=== PATIENT | male | born 1990 | race Caucasian/White ===

== ENCOUNTER 2022-01-11 16:11 | Emergency (ER) | payer BC, SELFPAY ==
[2022-01-11] VITALS (43 sets, daily range): BP systolic 115–153; BP diastolic 56–91; PULSE 62–90; RESP 11–24; TEMP 35.9–36.8; O2SAT 94–99
--- NOTE | 2022-01-11 16:15 | ED.GENADUL_ITS ---
Discharge Plan Disposition Patient Disposition: HOME Condition: Stable Discharge Details Clinical Impression: Bee sting allergy Primary Care Provider: Unknown,Unknown ED Provider: Nas Jeong Home Meds and New Rx's Prescriptions: New prednisone 20 mg tablet See Rx Instructions .ROUTE .COMPLEX Qty: 18 0RF Rx Instructions: Take 3 tabs daily for 3 days, then 2 tabs daily for 3 days, then 1 tab daily for 3 days. epinephrine 0.3 mg/0.3 mL auto-injector 0.3 ml SC ONCE PRN (Reason: anaphylaxis) Qty: 2 0RF Rx Instructions: as a single dose; may repeat once Continued epinephrine 0.3 mg/0.3 mL Auto-Injector 0.3 ml IM PRN PRN Discharge Instructions Instructions: Insect Bite or Sting (ED) Additional Instructions: Your lab work and EKGs today are reassuring and show no evidence of acute concerning significant findings. Prescriptions for steroids and an EpiPen have been sent electronically to your pharmacy to take as directed. Drink plenty of fluids and get plenty of rest. Take Benadryl as needed and directed for itching. Follow-up with your primary care doctor in 1 week. Return to the emergency department with any worsening or new concerning symptoms. Discharge Data Discharge Date/Time-TO BE ENTERED AT DEPARTURE: 01/11/22 20:41 Discharge Physician: Lesley Savage Medical Decision Making 1615 -- 31-year-old male with a history of anaphylaxis to bee stings presents with sensation of throat swelling that occurred 15 minutes after bee sting to his lower back prior to arrival. Blood pressure mildly hypertensive on arrival now improved. Patient appears in no acute distress and breathing comfortably. Normal oropharynx. Lungs clear bilaterally. Due to patient's history of anaphylaxis and sensation of throat swelling, his EpiPen was used here in triage. Will continue to monitor in the ED for 4 to 6 hours post epinephrine injection. We will place an IV, bolus IV fluids, IV Solu-Medrol, IV Benadryl, IV Pepcid. 1714 -- patient complained of substernal chest pressure. EKG obtained which notes a rate of 71, sinus with peaked T waves in anterior lateral leads but no STEMI. Will obtain screening labs. Do not feel indication for imaging at this time. 1899 -- labs reviewed and unremarkable. 1919 -- Pt reassessed and he feels much better -- he is currently eating and currently denies any difficulty swallowing or chest pain 1999 -- Case endorsed to Dr. Jeong to continue to monitor post epinephrine injection and pending delta troponin and repeat EKG results. Medical Records Medical records reviewed: Yes I reviewed the patient's medical records. Lab Data Lab results reviewed: Yes I reviewed the patient's lab results. Labs: Laboratory Tests Range/Units 01/11/22 01/11/22 17:38 17:38 WBC (4.4-10.8) 10^3/uL 9.60 RBC (4.36-5.78) 10^6/uL 4.69 Hgb (13.5-17.5) g/dL 14.3 Hct (40.0-50.0) % 41.2 MCV (80-95) fL 88 MCH (27.0-33.0) pg 30.5 MCHC (32.0-36.0) % 34.7 RDW (11.8-14.1) % 12.1 Plt Count (130-400) 10^3/uL 306 MPV (8.0-11.0) fL 9.8 Immature Gran % 0.4 Neutrophils % 66.0 Lymphocytes % 24.7 Monocytes % 7.2 Eosinophils % 1.1 Basophils % 0.6 Nucleated RBC % (0.0-0.3) % 0.0 Absolute Neutrophils (1.2-6.7) 10^3/uL 6.33 Absolute Lymphocytes (1.2-3.4) 10^3/uL 2.37 Absolute Monocytes (0.1-0.8) 10^3/uL 0.69 Absolute Eosinophils (0.0-0.7) 10^3/uL 0.11 Absolute Basophils (0.0-0.2) 10^3/uL 0.06 Sodium (136-145) mmol/L 143 Potassium (3.5-5.1) mmol/L 3.7 Chloride (98-107) mmol/L 106 Carbon Dioxide (21.0-32.0) mmol/L 27.1 Anion Gap (3-11) mmol/L 9.9 BUN (7-18) mg/dL 19 H Creatinine (0.70-1.30) mg/dL 1.2 Estimated GFR/1.73 m2 (mL/min/1.73m2) >= 60.00 Glucose (74-106) mg/dL 90 Calcium (8.5-10.1) mg/dL 8.7 Magnesium (1.8-2.4) mg/dL 2.0 Total Bilirubin (0.2-1.0) mg/dL 0.8 AST (15-37) U/L 13 L ALT (16-63) U/L 25 Alkaline Phosphatase (46-116) U/L 52 Troponin I (<or=60) ng/L < 50 Total Protein (6.4-8.2) g/dL 7.0 Albumin (3.4-5.0) g/dL 3.7 ECG Data Attestation: I personally reviewed and interpreted this ECG (s) as follows: Interpretation: Rate of 71, sinus, peaked T waves in anterior lateral leads. No STEMI. HPI General Mode of arrival: ambulatory . Date/Time Provider Initiated Documentation: 01/11/22 16:12 . Limitations to Documentation: no limitations . Information obtained by: patient . HPI Narrative: Pt is a 31yo M with a history of anaphylaxis to bee stings presents with sensation of throat swelling that occurred 15 minutes after a bee sting today. Patient states the bee sting occurred approximately 20 minutes prior to arrival. Patient states he was stung by a wasp in the center of his lower back. Patient states he has an EpiPen that he carries with him but did not use it as he states that he was told by a doctor in [place] to hold on his EpiPen unless he develops symptoms. Patient states approximately 15 minutes after the bee sting he developed sensation of throat swelling. He denies any difficulty breathing or vomiting. He states he has not taken any Benadryl or other medications. Related Data Home Medications Medication Instructions Recorded Confirmed epinephrine 0.3 mg/0.3 mL 0.3 ml IM PRN PRN 01/11/22 01/11/22 injection, auto-injector epinephrine 0.3 mg/0.3 mL 0.3 ml subcut ONCE PRN anaphylaxis 01/11/22 injection, auto-injector #2 ea prednisone 20 mg tablet See Rx Instructions .Route 01/11/22 .COMPLEX #18 tabs Previous Rx's Medication Instructions Recorded epinephrine 0.3 mg/0.3 mL 0.3 ml subcut ONCE PRN anaphylaxis 01/11/22 injection, auto-injector #2 ea prednisone 20 mg tablet See Rx Instructions .Route 01/11/22 .COMPLEX #18 tabs Allergies Allergy/AdvReac Type Severity Reaction Status Date / Time bee pollen Allergy Severe Anaphylaxis Unverified 01/11/22 16:23 General Stated Complaint: Allergic Review of Systems All systems reviewed & are unremarkable except as noted in HPI and below Constitutional Constitutional: Denies chills, Denies excessive sweating, Denies fatigue, Denies fever(s), Denies weakness and Denies weight loss Eyes Eyes: Reports system reviewed and no additional complaints, except as documented and Denies blurry vision ENT Ears, Nose, Mouth, and Throat: Denies vertigo, Denies dizziness, Denies otalgia, Denies nasal congestion, Denies sore throat and Denies throat swelling Cardiovascular Cardiovascular: Denies chest pain, Denies syncope, Denies rapid heart rate and Denies dyspnea Respiratory Respiratory: Denies chest congestion, Denies cough, Denies pain on inspiration and Denies dyspnea Gastrointestinal Gastrointestinal: Denies abdominal pain, Denies diarrhea and Denies vomiting Genitourinary Genitourinary: Denies hematuria, Denies dysuria and Denies flank pain Musculoskeletal Musculoskeletal: Denies back pain and Denies joint swelling Integumentary/Breasts Skin/Breast: Denies lesions and Denies rash Neurologic Neurologic: Denies behavioral changes, Denies confusion, Denies vertigo, Denies dizziness, Denies syncope, Denies localized weakness and Denies weakness Psychiatric Psychiatric: Denies behavioral changes, Denies confusion and Denies depression Endocrine Endocrine: Denies excessive sweating and Denies fatigue Hematologic/Lymphatic Hematologic/Lymphatic: Denies easy bruising and Denies lymphadenopathy Allergic/Immunologic Allergic/Immunologic: Denies throat swelling PFSH All Active Problems (Updated 01/11/22 @ 18:52 by Lesley Savage DO) Bee sting allergy (Acute) Medical History (Updated 01/11/22 @ 18:52 by Lesley Savage DO) History of bee sting allergy Surgical History (Updated 01/11/22 @ 17:16 by Lesley Savage DO) History of appendectomy History of tonsillectomy Social History Smoking/Tobacco Use Status: Current every day Tobacco Type: smokeless tobacco Smoking risk assessment performed?: Yes Alcohol Intake: never Drug use: Never Substance use type: does not use Do you feel safe at home: Yes Do you feel safe in your relationship?: Yes Exam Const General: cooperative and healthy appearing Orientation: alert, awake and oriented x3 HENMT Head: normal to inspection Ears: hearing grossly normal bilaterally, external ears normal and TM's normal bilaterally General nose exam: external nose normal Face and sinus: normal facial exam Mouth: oral mucosae normal Teeth and gingiva: dentition normal Throat: posterior oropharynx normal Eyes General: appearance normal, both eyes and all related structures Eyelids: eyelids normal Pupils: PERRL EOM: EOM intact bilaterally Neck Neck: normal visual inspection Lymphatic: no lymphadenopathy noted Chest Chest: normal inspection of the chest Resp Effort & Inspection: normal respiratory effort and able to speak in complete sentences Auscultation: clear to auscultation bilaterally Cardio Rate: regular rate Rhythm: regular rhythm GI Inspection: normal to inspection Palpation: soft, not firm, no guarding, no hepatosplenomegaly, no masses and nontender Auscultation: normal bowel sounds Back/Spine/Pelvis Back: no CVA tenderness Skin General skin exam: no rashes or lesions noted Neuro General: patient alert and patient awake Cognition: normal cognition Speech: speech normal Gait: normal gait Motor: muscle tone normal throughout Sensory Exam: no sensory deficits noted Extrem General: normal to inspection, full ROM and capillary refill normal Psych Appearance: grossly normal Mental Status: mental status grossly normal Speech and Movement: speech and movement normal Affect: normal affect Thought Process: normal Sign Out Sign Out Data: Sign Out Comment: Bee sting prior to arrival. H/o anaphylaxis to bees. Pt administered his own epi IM on arrival due to complaint of throat swelling. Pt c/o chest pain while here in the ED. First trop negative. EKG notes peaked T waves but no STEMI. F/u on delta troponin and EKG at 2030. If continues to improve and workup negative, will discharge to home. Prescriptions for steroids and epi pen sent electronically to his pharmacy. Last updated by Lesley Savage DO at 01/11/22 19:00
[2022-01-11] MEDS: Normal Saline 1,000 ML 1000 ML IV (17:05)
[2022-01-11] MEDS: methylPREDNISolone SUCC 125 MG VIAL IVP (17:10)
[2022-01-11] MEDS: Famotidine 20 MG/2 ML VIAL IVP (17:11)
--- NOTE | 2022-01-11 17:15 | RT.EKG_ITS ---
APPROVED REPORT Exam: Resting ECG Reason for Exam: chest pain Patient Location: E HR:79 bpm ECG Measurements Heart Rate 79 AXIS WV 158 P 61 QRSd 114 QRS 40 QT 370 T 24 QTc 426 Conclusion Sinus rhythm...normal P axis, V-rate 60- 99 ST elev, probable normal early repol pattern...ST elevation, age<55 I have reviewed and interpreted ECG and agree with software generated interpretation. Physician: Early repol, no stemi, no depression. unchanged from prior ekg
--- NOTE | 2022-01-11 17:15 | RT.EKG_ITS ---
APPROVED REPORT Exam: Resting ECG Reason for Exam: chest pain Patient Location: E HR:71 bpm ECG Measurements Heart Rate 71 AXIS NV 158 P 60 QRSd 116 QRS 38 QT 381 T 29 QTc 414 Conclusion Sinus rhythm...normal P axis, V-rate 60- 99 Nonspecific intraventricular conduction delay...QRSd >115mS, not LBBB/RBBB Lateral infarct, recent...Q>35, ST>.05, T neg, V5-V6 I aVL Borderline ST elevation, anterior leads...ST >0.15mV in V1-V4. Sinus. Normal axis. Peaked T waves anterolateral leads. No old EKG to compare. No STEMI. I have reviewed and interpreted ECG and agree with software generated interpretation.
[2022-01-11] MEDS: diphenhydrAMINE 50 MG/ML VIAL IVP (17:17)
[2022-01-11 17:46] LABS: Abs Immature Grans 0.04 10^3/uL (0.0-0.06); Absolute Basophil Count 0.06 10^3/uL (0.0-0.2); Absolute Eosinophil Count 0.11 10^3/uL (0.0-0.7); Absolute Lymphocyte Count 2.37 10^3/uL (1.2-3.4); Absolute Monocyte Count 0.69 10^3/uL (0.1-0.8); Absolute Neutrophil Count 6.33 10^3/uL (1.2-6.7); Basophils % 0.6; Eosinophils % 1.1; HCT 41.2 % (40.0-50.0); HGB 14.3 g/dL (13.5-17.5); Immature Grans % 0.4; Lymphocytes % 24.7; MCH 30.5 pg (27.0-33.0); MCHC 34.7 % (32.0-36.0); MCV 88 fL (80-95); MPV 9.8 fL (8.0-11.0); Monocytes % 7.2; Platelet Count 306 10^3/uL (130-400); RBC 4.69 10^6/uL (4.36-5.78); RDW 12.1 % (11.8-14.1); RDW-SD 38.8 fL
[2022-01-11 18:03] LABS: ALT 25 U/L (16-63); AST 13 U/L (15-37); Albumin 3.7 g/dL (3.4-5.0); Alkaline Phosphatase 52 U/L (46-116); Anion Gap 9.9 mmol/L (3-11); BUN 19 mg/dL (7-18); Bilirubin, Total 0.8 mg/dL (0.2-1.0); CO2 27.1 mmol/L (21.0-32.0); CREATININE 1.2 mg/dL (0.70-1.30); Calcium 8.7 mg/dL (8.5-10.1); Chloride 106 mmol/L (98-107); Glucose 90 mg/dL (74-106); Potassium 3.7 mmol/L (3.5-5.1); Sodium 143 mmol/L (136-145); Troponin I < 50 ng/L (<or=60)
[2022-01-11 20:52] LABS: Troponin I < 50 ng/L (<or=60)
--- NOTE | 2022-01-11 21:10 | ED.GENADUL_ITS ---
Discharge Plan Disposition Patient Disposition: HOME Condition: Stable Discharge Details Clinical Impression: Bee sting allergy Primary Care Provider: Unknown,Unknown ED Provider: Nas Jeong Home Meds and New Rx's Prescriptions: New prednisone 20 mg tablet See Rx Instructions .ROUTE .COMPLEX Qty: 18 0RF Rx Instructions: Take 3 tabs daily for 3 days, then 2 tabs daily for 3 days, then 1 tab daily for 3 days. epinephrine 0.3 mg/0.3 mL auto-injector 0.3 ml SC ONCE PRN (Reason: anaphylaxis) Qty: 2 0RF Rx Instructions: as a single dose; may repeat once Continued epinephrine 0.3 mg/0.3 mL Auto-Injector 0.3 ml IM PRN PRN Discharge Instructions Instructions: Insect Bite or Sting (ED) Additional Instructions: Your lab work and EKGs today are reassuring and show no evidence of acute concerning significant findings. Prescriptions for steroids and an EpiPen have been sent electronically to your pharmacy to take as directed. Drink plenty of fluids and get plenty of rest. Take Benadryl as needed and directed for itching. Follow-up with your primary care doctor in 1 week. Return to the emergency department with any worsening or new concerning symptoms. Discharge Data Discharge Physician: Lesley Dang Mode of arrival: ambulatory . Date/Time Provider Initiated Documentation: 01/11/22 16:12 . Limitations to Documentation: no limitations . Information obtained by: patient . Related Data Home Medications Medication Instructions Recorded Confirmed epinephrine 0.3 mg/0.3 mL 0.3 ml IM PRN PRN 01/11/22 01/11/22 injection, auto-injector epinephrine 0.3 mg/0.3 mL 0.3 ml subcut ONCE PRN anaphylaxis 01/11/22 injection, auto-injector #2 ea prednisone 20 mg tablet See Rx Instructions .Route 01/11/22 .COMPLEX #18 tabs Previous Rx's Medication Instructions Recorded epinephrine 0.3 mg/0.3 mL 0.3 ml subcut ONCE PRN anaphylaxis 01/11/22 injection, auto-injector #2 ea prednisone 20 mg tablet See Rx Instructions .Route 01/11/22 .COMPLEX #18 tabs Allergies Allergy/AdvReac Type Severity Reaction Status Date / Time bee pollen Allergy Severe Anaphylaxis Unverified 01/11/22 16:23 General Stated Complaint: Allergic HUGO: 3 PFSH All Active Problems (Updated 01/11/22 @ 18:52 by Lesley Savage DO) Bee sting allergy (Acute) Medical History (Updated 01/11/22 @ 18:52 by Lesley Savage DO) History of bee sting allergy Surgical History (Updated 01/11/22 @ 17:16 by Lesley Savage DO) History of appendectomy History of tonsillectomy Social History Smoking/Tobacco Use Status: Current every day Tobacco Type: smokeless tobacco Smoking risk assessment performed?: Yes Alcohol Intake: never Drug use: Never Substance use type: does not use Do you feel safe at home: Yes Do you feel safe in your relationship?: Yes Course Vital Signs Vital signs: Vital Signs Temperature 36.8 C 01/11/22 16:13 Pulse 78 01/11/22 16:13 Respiratory Rate 16 01/11/22 16:13 Blood Pressure 153/91 H 01/11/22 16:13 Pulse Oximetry 99 01/11/22 16:13 Temperature 36.8 C 01/11/22 16:13 Temperature Source Tympanic 01/11/22 16:13 Pulse 84 01/11/22 20:00 Pulse 74 01/11/22 20:01 Respiratory Rate 16 01/11/22 20:01 Respiratory Effort 01/11/22 16:32 Respiratory Pattern Normal 01/11/22 16:32 Blood Pressure 130/68 01/11/22 20:00 Blood Pressure Mean 83 01/11/22 20:00 Blood Pressure Position Supine 01/11/22 16:13 Pulse Oximetry 96 01/11/22 20:01 Oxygen Delivery Method Room Air 01/11/22 16:13 Oxygen Flow Rate 0 01/11/22 16:13 Pain Level 0 01/11/22 16:13 Lab/Test Results Lab/Test Results: Laboratory Tests Range/Units 01/11/22 01/11/22 01/11/22 17:38 17:38 20:30 WBC (4.4-10.8) 10^3/uL 9.60 RBC (4.36-5.78) 10^6/uL 4.69 Hgb (13.5-17.5) g/dL 14.3 Hct (40.0-50.0) % 41.2 MCV (80-95) fL 88 MCH (27.0-33.0) pg 30.5 MCHC (32.0-36.0) % 34.7 RDW (11.8-14.1) % 12.1 Plt Count (130-400) 10^3/uL 306 MPV (8.0-11.0) fL 9.8 Immature Gran % 0.4 Neutrophils % 66.0 Lymphocytes % 24.7 Monocytes % 7.2 Eosinophils % 1.1 Basophils % 0.6 Nucleated RBC % (0.0-0.3) % 0.0 Absolute Neutrophils (1.2-6.7) 10^3/uL 6.33 Absolute Lymphocytes (1.2-3.4) 10^3/uL 2.37 Absolute Monocytes (0.1-0.8) 10^3/uL 0.69 Absolute Eosinophils (0.0-0.7) 10^3/uL 0.11 Absolute Basophils (0.0-0.2) 10^3/uL 0.06 Sodium (136-145) mmol/L 143 Potassium (3.5-5.1) mmol/L 3.7 Chloride (98-107) mmol/L 106 Carbon Dioxide (21.0-32.0) mmol/L 27.1 Anion Gap (3-11) mmol/L 9.9 BUN (7-18) mg/dL 19 H Creatinine (0.70-1.30) mg/dL 1.2 Estimated GFR/1.73 m2 (mL/min/1.73m2) >= 60.00 Glucose (74-106) mg/dL 90 Calcium (8.5-10.1) mg/dL 8.7 Magnesium (1.8-2.4) mg/dL 2.0 Total Bilirubin (0.2-1.0) mg/dL 0.8 AST (15-37) U/L 13 L ALT (16-63) U/L 25 Alkaline Phosphatase (46-116) U/L 52 Troponin I (<or=60) ng/L < 50 < 50 Total Protein (6.4-8.2) g/dL 7.0 Albumin (3.4-5.0) g/dL 3.7 Sign Out Sign Out Data: Sign Out Comment: Bee sting prior to arrival. H/o anaphylaxis to bees. Pt administered his own epi IM on arrival due to complaint of throat swelling. Pt c/o chest pain while here in the ED. First trop negative. EKG notes peaked T waves but no STEMI. F/u on delta troponin and EKG at 2030. If continues to improve and workup negative, will discharge to home. Prescriptions for steroids and epi pen sent electronically to his pharmacy. Last updated by Lesley Savage DO at 01/11/22 19:00
--- NOTE | 2022-01-11 21:10 | W.EDPROG ---
Date of service: 01/11/22 Time of Service: 21:10 Medical Decision Making Case was signed out to me by my colleague Dr. Lesley Savage. Please refer to HPI, physical exam, assessment and plan. At time of signout the patient was awaiting repeat EKG and repeat troponin. These have both returned and are unchanged. Slight peaking of the T waves, however the patient's potassium status is notably stable. No other prior EKG for comparison, however no acute changes during the patient's time here. No evidence of STEMI. Symptoms consistent with early repolarization, likely secondary to age. With no evidence of conus syndrome with a normal and normal delta troponin, and no evidence of cardiac etiology or other concerning abnormality, and no continued evidence of anaphylaxis or significant allergy I do feel that the patient is safe for discharge. Discussed red flags which to return. Patient notably clinically stable at time of disposition. I have extensively reviewed the treatment plan and discharge instructions with the patient. I have addressed all patient concerns at this time. The patient was made aware of what symptoms to monitor for that would warrant a return to the emergency department. Discussed the plan with the patient, they demonstrate verbal understanding and agreement with our assessment and plan at this time. The documentation in this chart was dictated using [employer] dictation software. Please excuse any dictation errors. Sign Out Sign Out Data: Sign Out Comment: Bee sting prior to arrival. H/o anaphylaxis to bees. Pt administered his own epi IM on arrival due to complaint of throat swelling. Pt c/o chest pain while here in the ED. First trop negative. EKG notes peaked T waves but no STEMI. F/u on delta troponin and EKG at 2030. If continues to improve and workup negative, will discharge to home. Prescriptions for steroids and epi pen sent electronically to his pharmacy. Last updated by Lesley Savage DO at 01/11/22 19:00 Discharge Plan Disposition Patient Disposition: HOME Condition: Stable Discharge Details Clinical Impression: Bee sting allergy Primary Care Provider: Unknown,Unknown ED Provider: Nas Jeong Home Meds and New Rx's Prescriptions: New prednisone 20 mg tablet See Rx Instructions .ROUTE .COMPLEX Qty: 18 0RF Rx Instructions: Take 3 tabs daily for 3 days, then 2 tabs daily for 3 days, then 1 tab daily for 3 days. epinephrine 0.3 mg/0.3 mL auto-injector 0.3 ml SC ONCE PRN (Reason: anaphylaxis) Qty: 2 0RF Rx Instructions: as a single dose; may repeat once Continued epinephrine 0.3 mg/0.3 mL Auto-Injector 0.3 ml IM PRN PRN Discharge Instructions Instructions: Insect Bite or Sting (ED) Additional Instructions: Your lab work and EKGs today are reassuring and show no evidence of acute concerning significant findings. Prescriptions for steroids and an EpiPen have been sent electronically to your pharmacy to take as directed. Drink plenty of fluids and get plenty of rest. Take Benadryl as needed and directed for itching. Follow-up with your primary care doctor in 1 week. Return to the emergency department with any worsening or new concerning symptoms. Discharge Data Discharge Physician: Lesley Savage
== END 2022-01-11 20:41 | disposition home or self-care (01) ==
PROVIDERS: Physician Assistant; Emergency Provider Student in an Organized Health Care Education/Training Program
DX: T63.441A Toxic effect of venom of bees, accidental (unintentional), initial encounter (principal); R09.89 Other specified symptoms and signs involving the circulatory and respiratory systems; R07.2 Precordial pain; F17.290 Nicotine dependence, other tobacco product, uncomplicated
CPT/HCPCS: 36415; 80053; 93005; 96361; 96374; 96375; 99284; 83735; 84484; 85025; 93010; J1200; J2930